=== PATIENT | male | born 1955 | race Caucasian/White ===

== ENCOUNTER → 2016-11-09 | Day surgery (SDC) | payer MEDICARE ==
[~2016-11-09] VITALS: Ht 180.3 cm; Wt 148.7 kg
[~2016-11-09] MED LIST: BIPAP INH; CALCIUM-MAGNES1 EAC1 PO; CARDIZEM CD)(T180 MG PO; CYMBALTA30 MG PO; LODINE400 MG PO; MONODOX50 MG PO; MS CONTIN30 MG PO; NEURONTIN400 MG PO; OXYGEN M-15 INH; PRADAXA150 MG PO; ROBAXIN500 MG PO; SPIRIVA HANDIHA1 KIT INH; SYMBICORT 16010.2 GM INH
--- NOTE | ~2016-11-09 | OR ---
PATIENT'S NAME: EVER GARCIA [facility] AGE: 61 Y [address] ROOM: [place] [address] LOCATION: [facility] – [place] ADMIT DATE: 11/09/2016 OR/Procedure Report DISCHARGE DATE: FAMILY PHYSICIAN: Thomas Sawant MD ATTENDING PHYSICIAN: Jorgito Rhodes SURGEON: Jorgito Rhodes MD POULTRY FIELD SERVICE TECHNICIAN: DATE OF PROCEDURE: 11/09/2016 ADDENDUM: Size of the bladder tumor should read multiple 2-3 mm tumors in the base of the bladder. JORGITO RHODES MD EKL/modl /[id number] d: 12/08/16605 t: 12/09/16 0454, OPERATIVE SUMMARY
--- NOTE | ~2016-11-09 | HP ---
PATIENT'S NAME: [facility] AGE: 61 Y [address] ROOM: [place] [id number] LOCATION: [facility] ADMIT DATE: 11/05/2016 History & Physical DISCHARGE DATE: FAMILY PHYSICIAN: PHYSICIAN, UNKNOWN ATTENDING PHYSICIAN: Parveen Rhodes DATE OF SERVICE: HISTORY OF PRESENT ILLNESS: This is a 61-year-old male, who was first seen here at [facility] in June 2008 because of hematuria. He was having gross hematuria with clots. 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 This was resected transurethrally and then he received a course of BCG. Biopsies in October 2008 revealed focal transitional cell carcinoma in situ and he received a second course of BCG which he completed in 2008. In February 2009, his cystoscopies and retrogrades were normal. In April 2010, he was found to have some scarring over the right hemitrigone. Everything was normal. There was an area that was suspicious for carcinoma in situ and this was biopsied. The path report revealed chronic ulceration and inflammation, no malignancy. He was then seen again in 2012. His cytology was negative and in December 2012, he had a positive cytology, but he did not follow up on that and have not seen him since then. Over the past several weeks, he has been having gross hematuria and seen now for further evaluation. He does have significant medical history and has been on Pradaxa for atrial fib and this was discontinued a week ago. PAST MEDICAL HISTORY: ILLNESSES: 1. Arteriosclerotic heart disease with atrial fib. 2. COPD. 3. Obesity. 4. Hypertension. ALLERGIES: PENICILLIN. PATIENT'S NAME: [facility] AGE: 61 Y [address] ROOM: [place] [id number] LOCATION: [facility] ADMIT DATE: 11/05/2016 History & Physical DISCHARGE DATE: FAMILY PHYSICIAN: PHYSICIAN, UNKNOWN ATTENDING PHYSICIAN: Parveen Rhodes OPERATIONS: 1. Carpal tunnel. 2. As above. PHYSICAL EXAMINATION: GENERAL: Well-developed, well-nourished male. CHEST: Distant breath sounds. HEART: Irregularly irregular rate. ABDOMEN: Soft, obese with no palpable masses. : Normal penis. Testicles are normal size and normal to palpation. Prostate is normal size and normal to palpation. RECTAL: Negative. IMPRESSION: 1. Gross hematuria. 2. History of transitional cell carcinoma of the bladder. PLAN: Cystoscopy. MD YARA ANGELA/srinivasan /[id number] D: [id number] T: [id number] HISTORY & PHYSICAL
--- NOTE | ~2016-11-09 | OR ---
PATIENT'S NAME: [facility] AGE: 61 Y [address] ROOM: [place] [address] LOCATION: [facility] [place] ADMIT DATE: 11/09/2016 OR/Procedure Report DISCHARGE DATE: FAMILY PHYSICIAN: Thomas Sawant MD ATTENDING PHYSICIAN: Jorgito Ibarra SURGEON: Jorgito Ibarra MD FLEET DISPATCH MANAGER: DATE OF PROCEDURE: 11/09/2016 PREOPERATIVE DIAGNOSES: 1. Hematuria. 2. History of cancer of the bladder. POSTOPERATIVE DIAGNOSES: 1. Urethral stricture. 2. Recurrent transitional cell carcinoma of the bladder. PROCEDURE PERFORMED: 1. Cystoscopy and urethral dilatation. 2. Cystoscopy and fulguration. 3. Insertion of Rodriguez catheter. DESCRIPTION OF PROCEDURE: After adequate anesthesia, he was prepped and draped. A 20 cystoscope was passed in the deep bulbous urethra, there was a stricture. A guidewire was passed and then over the guidewire, the stricture was dilated with the S-curved dilators. The scope was reinserted, passed through the prostatic area. The bladder was distended, but appeared normal except over the trigone, there was changes of very early superficial tumor and with the Bugbee electrode, this was fulgurated. Because of his overall condition, severe COPD, and oxygen dependent, it was just fulgurated. An 18 Rodriguez catheter was inserted. He was accompanied to recovery area. JORGITO IBARRA MD EKL/modl PATIENT'S NAME: [facility] AGE: 61 Y [address] ROOM: [place] [address] LOCATION: [facility] [place] ADMIT DATE: 11/09/2016 OR/Procedure Report DISCHARGE DATE: FAMILY PHYSICIAN: Thomas Sawant MD ATTENDING PHYSICIAN: Jorgito Ibarra /[id number] d: 11/09/16713 t: 11/10/16 0434, OPERATIVE SUMMARY
[2016-11-09 06:12] LABS: BASOPHIL # 0.1 K/uL (0.0-0.2); BASOPHIL % 0.5 %; EOSINOPHIL # 0.2 K/uL (0.0-0.5); EOSINOPHIL % 2.5 %; HEMATOCRIT 52.7 % (37.0-53.0); HEMOGLOBIN 16.8 g/dL (12.0-17.0); IMMATURE GRANULOCYTE % 0.4 %; LYMPHOCYTE # 1.8 K/uL (0.8-4.0); LYMPHOCYTE % 18.9 %; MCH 32.3 pg (27.0-34.0); MCHC 31.9 gm/dL (32.0-36.5); MCV 101.3 fl (83.0-98.0); MONOCYTE # 1.1 K/uL (0.0-1.0); MONOCYTE % 11.7 %; MPV 10.7 fl (9.4-12.4); NEUTROPHIL # (ANC) 6.1 K/uL (1.4-9.0); NRBC % 0 /100WBC (0-0.00); PLATELET COUNT 168 K/uL (150-450); RDW-CV 14.5 % (11.9-14.6); WBC 9.3 K/uL (4.0-11.0)
== END | disposition disaster alternative care site (69) ==
LOC: GPOC 11-05 10:00 → GSDC 05:18
PROVIDERS: Urology
PROC: 0T5B8ZZ Destruction of Bladder, Via Natural or Artificial Opening Endoscopic (ICD-10-PCS; principal; 2016-11-09)
PROC: 0T7D8ZZ Dilation of Urethra, Via Natural or Artificial Opening Endoscopic (ICD-10-PCS; 2016-11-09)
DX: C67.0 Malignant neoplasm of trigone of bladder (principal); N35.9 Urethral stricture, unspecified; F32.9 Major depressive disorder, single episode, unspecified; I10 Essential (primary) hypertension; J44.9 Chronic obstructive pulmonary disease, unspecified; I25.10 Atherosclerotic heart disease of native coronary artery without angina pectoris; I48.91 Unspecified atrial fibrillation; E66.9 Obesity, unspecified; Z85.51 Personal history of malignant neoplasm of bladder; Z88.8 Allergy status to other drugs, medicaments and biological substances; Z88.0 Allergy status to penicillin; Z79.899 Other long term (current) drug therapy
CPT/HCPCS: C1769; J0744; J2001; J7030

== ENCOUNTER 2017-01-13 05:17 | Day surgery (SDC) | payer MEDICARE ==
[~2017-01-13] VITALS: Ht 180.3 cm; Wt 144.1 kg
--- NOTE | ~2017-01-13 | OR ---
PATIENT'S NAME: EVER GARCIA [facility] AGE: 62 Y [address] ROOM: [place] [address] LOCATION: [facility] [place] ADMIT DATE: 01/13/2017 OR/Procedure Report DISCHARGE DATE: 01/14/2017 FAMILY PHYSICIAN: Thomas Sawant MD ATTENDING PHYSICIAN: Parveen Rhodes SURGEON: Parveen Rhodes MD TEST DESK SUPERVISOR: DATE OF PROCEDURE: 01/13/2017 CLINICAL DOCUMENTATION CLARIFICATION FORM: The size of the bladder tumor was approximately 2 x 2 cm. The entire tumor was resected. Present on Admission? Unable to determine. MD YARA ANGELA/srinivasan /[id number] d: 02/09/17 0555 t: 02/10/17 0447, OPERATIVE SUMMARY
--- NOTE | ~2017-01-13 | OR ---
PATIENT'S NAME: EVER GARCIA [facility] AGE: 62 Y [address] ROOM: [place] [address] LOCATION: [facility] [place] ADMIT DATE: 01/13/2017 OR/Procedure Report DISCHARGE DATE: FAMILY PHYSICIAN: Thomas Sawant MD ATTENDING PHYSICIAN: Jorgito Rhodes SURGEON: Jorgito Rhodes MD MEDICAL SCIENTIFIC LIAISON: DATE OF PROCEDURE: 01/13/2017 PREOPERATIVE DIAGNOSES: 1. Hematuria. 2. Abnormal CT scan. POSTOPERATIVE DIAGNOSIS: Transitional cell carcinoma, bladder. OPERATION PERFORMED: TUR of the prostate. DESCRIPTION OF PROCEDURE: After adequate IV sedation, he was prepped and draped. A cystoscope was passed. Anterior urethra was normal. Prostatic fossa was opened. Examination of the bladder revealed a normal trigone. 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 Remaining bladder was unremarkable. Resectoscope was inserted and with resectoscope, his bladder tumor was resected, the base of it was thoroughly fulgurated. A 20 three-way Rodriguez catheter was inserted. He was accompanied to recovery area. JORGITO RHODES MD EKL/modl /[id number] d: 01/13/17 0805 t: 01/14/17 0443, OPERATIVE SUMMARY
--- NOTE | ~2017-01-13 | HP ---
PATIENT'S NAME: [facility] AGE: 62 Y [address] ROOM: [place] [address] LOCATION: [facility] [place] ADMIT DATE: 01/13/2017 History & Physical DISCHARGE DATE: FAMILY PHYSICIAN: Thomas Sawant MD ATTENDING PHYSICIAN: Jorgito Rhodes DATE OF SERVICE: HISTORY: This is a 62-year-old male who was first seen at [facility] in June 2008 because of hematuria. 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 He then received a course of BCG. October 2008 biopsies of the bladder showed focal transitional cell carcinoma in situ and he received a second course of BCG. In February 2009, his cystoscopy and retrogrades were normal. In April 2010, he had found no recurrent carcinoma. He has been having gross hematuria. A CT scan done at the [facility] showed a 14 mm bladder mass and seen now for followup cystoscopy. He has been on Pradaxa for atrial fibrillation, but this was discontinued. PAST MEDICAL HISTORY: Illnesses: 1. Arteriosclerotic heart disease with chronic atrial fibrillation. 2. COPD. 3. Obesity. 4. Hypertension. ALLERGIES: PENICILLIN. OPERATIONS: 1. Carpal tunnel. 2. As above. PHYSICAL EXAMINATION: GENERAL: A well-developed, obese male, in marked shortness of breath. CHEST: Distant breath sounds. HEART: Irregularly irregular rate. ABDOMEN: Soft and obese. PATIENT'S NAME: [facility] AGE: 62 Y [address] ROOM: [place] [address] LOCATION: [facility] [place] ADMIT DATE: 01/13/2017 History & Physical DISCHARGE DATE: FAMILY PHYSICIAN: Thomas Sawant MD ATTENDING PHYSICIAN: Jorgito Rhodes : Normal penis. Testicles are normal size and normal to palpation. Prostate is normal to palpation. RECTAL: Negative. IMPRESSION: Hematuria with abnormal CT scan. PLAN: Cystoscopy. JORGITO RHODES MD EKL/modl /[id number] D: [id number] T: [id number] HISTORY & PHYSICAL
[2017-01-13 05:55] LABS: BASOPHIL # 0.1 K/uL (0.0-0.2); BASOPHIL % 0.6 %; EOSINOPHIL # 0.3 K/uL (0.0-0.5); EOSINOPHIL % 2.9 %; HEMATOCRIT 50.7 % (37.0-53.0); HEMOGLOBIN 16.9 g/dL (11.0-16.0); IMMATURE GRANULOCYTE # 0.1 K/uL (0.0-0.3); IMMATURE GRANULOCYTE % 0.5 %; LYMPHOCYTE # 1.9 K/uL (0.8-4.0); LYMPHOCYTE % 18.3 %; MCH 33.8 pg (27.0-34.0); MCHC 33.3 gm/dL (32.0-36.5); MCV 101.4 fl (83.0-98.0); MONOCYTE # 0.9 K/uL (0.0-1.0); MONOCYTE % 8.8 %; MPV 10.9 fl (9.4-12.4); NEUTROPHIL % 68.9 %; NRBC % 0 /100WBC (0-0.00); PLATELET COUNT 156 K/uL (150-450); RDW-CV 13.9 % (11.9-14.6); WBC 10.2 K/uL (4.0-11.0)
--- NOTE | 2017-01-13 16:23 | NUR ---
Significant Event: Patient to the room from PACU at 0850 for post op cysto and TURBT. Patient had an elevated BP in PACU and he has been 162/107 down to 125/81 with his pulse in the 80-90's. Patient received a total of Fentanyl 100 mcg IV, Morphine 2 mg IV and [place] 1 tab in PACU. B&O supp given at 0702. Patient c/o urge to void at times and has refused pain meds. Patient received Labetolol 5 mg IV given x 3 doses in PACU for an elevated BP. CBI running at a moderate rate with pale peach colored urine with one long, stringy clot. Patient tolerated clear liquids and will advance to a regular diet for dinner. Follow up:
--- NOTE | 2017-01-14 03:02 | NUR ---
Significant Event: PT AO. VSS ON 3L O2 PER HOME ROUTINE, AFEBRILE. WEARS CPAP AT HS. TOLERATING REGULAR DIET. NO PRN MEDICATIONS GIVEN. IVF RUNNING TO R HAND. DURAND WITH CBI RUNNING SLOW, FEW SMALL CLOTS NOTED. CONTINUES ON BEDREST. FAMILY AT BEDSIDE. Follow up: CONTINUE TO MONITOR
--- NOTE | 2017-01-14 11:31 | NUR ---
Confirmed with [facility] that he was discharging to home. His was present and confirmed she would be taking him home. He denied any needs or concerns.
--- NOTE | 2017-01-14 13:10 | NUR ---
DISCHARGE: Pt. and were educated on discharge instructions, catheter cares, and catheter removal. No new medications. Verbalized understanding of teaching, no questions or concerns. Left with all belongings and prescriptions. IV removed by primary nurse. Taken to front door by aide and driven home by family.
== END 2017-01-14 11:56 | disposition disaster alternative care site (69) ==
LOC: GSDC 05:17 → GMSU 05:17 → GPOC 16:00 → GSDC 01-14 11:56
PROVIDERS: Urology
PROC: 0TBB8ZX Excision of Bladder, Via Natural or Artificial Opening Endoscopic, Diagnostic (ICD-10-PCS; principal; 2017-01-13)
DX: C67.9 Malignant neoplasm of bladder, unspecified (principal); I10 Essential (primary) hypertension; J44.9 Chronic obstructive pulmonary disease, unspecified; G89.29 Other chronic pain; G47.30 Sleep apnea, unspecified; I25.10 Atherosclerotic heart disease of native coronary artery without angina pectoris; I48.2 Chronic atrial fibrillation; E66.9 Obesity, unspecified; Z98.890 Other specified postprocedural states
CPT/HCPCS: J0744; J2001; J2270; J3010; J7120

== ENCOUNTER → 2017-03-01 | Outpatient (CLI) | payer MEDICARE | END | disposition disaster alternative care site (69) | LOC: GAMB 20:32 | DX: R06.9 Unspecified abnormalities of breathing (principal); I48.91 Unspecified atrial fibrillation; R60.0 Localized edema; R06.2 Wheezing; R41.0 Disorientation, unspecified; R06.02 Shortness of breath; Z87.09 Personal history of other diseases of the respiratory system; Z86.79 Personal history of other diseases of the circulatory system | CPT/HCPCS: J2930 ==